=== PATIENT | male | born 1975 | race Native Hawaiian/Other Pacific Islander ===

== ENCOUNTER 2017-03-18 23:46 | Outpatient (CLI) | payer OTHER | END 2017-03-19 01:07 | disposition short-term general hospital (02) | LOC: AMB 23:46 | DX: S52.91XB Unspecified fracture of right forearm, initial encounter for open fracture type I or II (principal); S52.001B Unspecified fracture of upper end of right ulna, initial encounter for open fracture type I or II; W34.00XA Accidental discharge from unspecified firearms or gun, initial encounter | CPT/HCPCS: A0425; A0427 ==

== ENCOUNTER 2017-04-16 07:26 | Emergency (ER) | payer OTHER ==
[~2017-04-16] VITALS: Ht 180.3 cm; Wt 72.6 kg
[2017-04-16 07:30] VITALS: BP 167/99; TEMP 98.3
== END 2017-04-16 08:04 | disposition home or self-care (01) ==
LOC: ED 07:26
DX: G89.18 Other acute postprocedural pain (principal)
CPT/HCPCS: 99281

== ENCOUNTER 2020-06-02 20:14 | Emergency (ER) | payer OTHER ==
[~2020-06-02] VITALS: Ht 180.3 cm; Wt 79.4 kg
[2020-06-02 21:20] VITALS: BP 134/98; TEMP 98.4
== END 2020-06-02 21:20 | disposition home or self-care (01) ==
LOC: ED 20:14
DX: M79.631 Pain in right forearm (principal); G89.29 Other chronic pain; G62.89 Other specified polyneuropathies; Z87.828 Personal history of other (healed) physical injury and trauma
CPT/HCPCS: 96372; 99283; J1885

== ENCOUNTER 2021-12-18 15:05 | Emergency (ER) | payer BC ==
[~2021-12-18] VITALS: Ht 180.3 cm; Wt 79.4 kg
[2021-12-18 15:30] VITALS: BP 117/78; TEMP 97.2
== END 2021-12-18 19:36 | disposition home or self-care (01) ==
LOC: ED 15:05
DX: S46.811A Strain of other muscles, fascia and tendons at shoulder and upper arm level, right arm, initial encounter (principal); W18.39XA Other fall on same level, initial encounter; Y92.89 Other specified places as the place of occurrence of the external cause
CPT/HCPCS: 99283

== ENCOUNTER 2022-04-20 22:37 | Emergency (ER) | payer BC ==
[~2022-04-20] VITALS: Ht 180.3 cm; Wt 77.1 kg
[2022-04-21 00:25] VITALS: BP 145/98; TEMP 98.8
== END 2022-04-21 00:25 | disposition home or self-care (01) ==
LOC: ED 22:37
PROC: 2W3DX1Z Immobilization of Left Lower Arm using Splint (ICD-10-PCS; principal; 2022-04-20)
DX: S63.592A Other specified sprain of left wrist, initial encounter (principal); V02.00XA Pedestrian on foot injured in collision with two- or three-wheeled motor vehicle in nontraffic accident, initial encounter; Y92.096 Garden or yard of other non-institutional residence as the place of occurrence of the external cause
CPT/HCPCS: 96372; 99283; J1885

== ENCOUNTER 2022-07-07 19:54 | Emergency (ER) | payer OTHER ==
[~2022-07-07] VITALS: Ht 180.3 cm; Wt 81.6 kg
[2022-07-07 20:00] VITALS: BP 155/88; TEMP 98.9
== END 2022-07-07 22:15 | disposition home or self-care (01) ==
LOC: ED 19:54
DX: S50.11XA Contusion of right forearm, initial encounter (principal); W19.XXXA Unspecified fall, initial encounter; F17.210 Nicotine dependence, cigarettes, uncomplicated
CPT/HCPCS: 96372; 99283; J1885

== ENCOUNTER 2022-08-30 15:13 | Emergency (ER) | payer OTHER ==
[~2022-08-30] VITALS: Ht 180.3 cm; Wt 77.1 kg
[2022-08-30 15:15] VITALS: BP 123/66; TEMP 97.5
== END 2022-08-30 16:23 | disposition home or self-care (01) ==
LOC: ED 15:13
DX: J06.9 Acute upper respiratory infection, unspecified (principal); B34.9 Viral infection, unspecified
CPT/HCPCS: 87635; 99283; U0003